=== PATIENT | female | born 1945 | race Caucasian/White ===

== ENCOUNTER 2017-02-10 12:06 | Emergency (ER) | payer BC ==
[2017-02-10 12:19] VITALS: BP 175/88
[2017-02-10] MEDS ORDERED: CLINDAMYCIN HCL 150 MG CAPSULE PO ONE (12:28)
[2017-02-10] MEDS ORDERED: DIPHTH,PERTUSS(ACELL),TET VAC 0.5 ML VIAL IM ONE ×2 (12:37→12:44)
--- OUTSIDE RECORDS SUMMARY | 2017-02-10 12:40 | XMS REPORT | Continuity of Care Document ---
:1945 Author Organization [facility] ([facility]) [place] [address] Phone [phone] Care Team Providers Name Role Phone Elsy Negrete Primary Care Provider [phone] Source Comments This disclosure is being made pursuant to the Care Everywhere program, applicable federal and state laws, and may not contain all informaitonavailable regarding this patient.[facility] ([facility]) Active Allergies and Adverse Reactions Allergen Noted Date Severity Reactions Comments Morphine 01/17/2016 Nausea & Vomiting Current Medications Prescription Sig. Disp. Refills Start Date End Date Status HYDROCODONE/ACETAMIN Active OPHEN (VICODIN PO) aspirin 81 mg EC Take 81 mg by Active tablet mouth daily. nitroglycerin Place 1 25 tablet 11 01/18/2016 Active (NITROSTAT) 0.4 mg tablet (0.4 SL tablet mg total) under the tongue every 5 minutes as needed. Maximum of 3 tablets in 15 minutes. OMEPRAZOLE (PRILOSEC Active PO) rosuvastatin 40 mg Take 1 tablet 90 tablet 3 01/29/2017 Active tablet (40 mg total) by mouth every evening. metoPROLol succinate Take 0.5 45 tablet 3 01/29/2017 Active 25 mg XL tablet tablets (12.5 mg total) by mouth daily. metoPROLol succinate Take 0.5 90 tablet 3 01/18/2016 01/29/2017 Discontinued 25 mg XL tablet tablets (12.5 mg total) by mouth daily. rosuvastatin Take 1 tablet 90 tablet 3 01/18/2016 01/29/2017 Discontinued (CRESTOR) 40 mg (40 mg total) tablet by mouth every evening. Active Problems Problem Noted Date Coronary artery disease Overview: [id number], Stent mid RCA-2006, Inferior CA-2006 Dyslipidemia Most Recent Encounters Date Type Specialty Providers Description 01/29/2017 Office Visit Heart and Vascular Carrol Yanez, JOSÉ MIGUEL Dx: Coronary artery disease involving [place] coronary artery of [place] heart without angina pectoris (Primary Dx) Social History Tobacco Use Types Packs/Day Years Used Date Current Some Day Smoker Cigarettes Smokeless Tobacco: Never Used Tobacco Cessation:Ready to Quit: No; Counseling Given: Yes Comments: Last Filed Vital Signs Vital Sign Reading Time Taken Blood Pressure 130/90 01/29/2017 10:31 AM CDT Pulse 60 01/29/2017 10:31 AM CDT Temperature - - Respiratory Rate - - Height 1.524 m (5') 01/29/2017 10:31 AM CDT Weight 58.06 kg (128 lb) 01/29/2017 10:31 AM CDT Body Mass Index 25 01/29/2017 10:31 AM CDT Oxygen Saturation - - Plan of Care Date Type Specialty Providers Description 02/11/2018 Appointment Heart and Vascular Carrol Yanez ARNP Chief Comp: Patient [address] [place] [address] Visit [phone] (Fax) Health Maintenance Due Date Last Done Comments HCV Screening 1945 Hepatitis B Vaccine (1 of 3 - Primary Series) 1945 Tdap Vaccine 1957 Lipid Disorder Screening 1964 Td Vaccine 1964 Mammogram 1986 Colonoscopy 12/03/1996 Zoster Vaccine 2006 Osteoporosis Screening (DXA Bone Density) 2011 Pneumococcal Vaccine (1 of 2 - PCV13) 2011 Influenza Vaccine: Seasonal (Season Ended) 2017 Results from Last 3 Months Not on file
[2017-02-10] MEDS ORDERED: CLINDAMYCIN HCL 150 MG CAPSULE ONE (12:44)
--- NOTE | 2017-02-10 12:49 | ERNOTE ---
Integumentary HPI - Narrative Date of Service: 02/10/17 - General Presenting Symptoms: insect bite Time Seen by Provider: 02/10/17 12:20 Source: patient Exam Limitations: no limitations - Immun/Allergies/Home Medications Allergies/Adverse Reactions: Allergies Allergy/AdvReac Type Severity Reaction Status Date / Time morphine AdvReac Verified 11/13/14 01:39 Home Medications: HOME MEDICATIONS Metoprolol Tartrate [Lopressor] 12.5 mg PO DAILY 11/13/14 [Last Taken Unknown] Rosuvastatin Calcium [Crestor] 40 mg PO DAILY 11/13/14 [Last Taken Unknown] Clindamycin HCl [Cleocin HCl] 300 mg PO QID #40 capsule 02/10/17 [Last Taken Unknown] - History of Present Illness Narrative: Patient presents with complaints of infected tick bite. She relates she had a tick bite right scalp 3 fays ago, tick removed 2 days ago. They inspected the tick and it was all removed. Since the tick was removed she has had yellow crusting, redness at the site and now the posterior/lateral neck hurts. No fever, no vomiting, no other associated Sx. She has moderate pain in the right posterior lateral upper neck with tender lymph node noted here. No other Sx. Location: Reports: scalp Quality: Reports: painful Severity: moderate Exposure: Reports: tick bite/ant Modifying Factors - (Improves): Reports: nothing Modifying Factors - (Worsens): Reports: nothing Associated Symptoms: Denies: hives, petechiae, fever, sore throat Prior Treatment: Denies: recently seen Review of Systems - Review of Systems Constitutional: Present: See HPI. Absent: fever EYE: Present: no symptoms reported ENT: Present: no symptoms reported Respiratory: Present: no symptoms reported Cardiology: Present: no symptoms reported Gastrointestinal/Abdominal: Present: no symptoms reported Neurological: Present: no symptoms reported - Patient's Past Medical History Patient History - Cardiac/Respiratory: Hypertension, Myocardial Infarction Patient History - Surgical Procedures: Hysterectomy - Social History Living Situations: home Psych History: No pertinent hx Smoking Status: Current every day smoker Physical Exam - Physical Exam General Appearance: Present: wd/wn, alert, no apparent distress Eye Exam: Normal inspection: bilateral Ears, Nose, Throat: Present: normal ENT inspection Neck: Present: other - Right posterior cervical chain lymphnodes tender c/w the infection on her scalp. No nec fasc. No abscess. No suggestion of anterior extension or tenderenss. Respiratory: Present: no respiratory distress, normal breath sounds Cardiovascular/Chest: Present: regular rate, rhythm Gastrointestinal/Abdominal: Present: nontender Extremity Exam: Present: normal inspection Neurological Exam: Present: alert, normal mood/affect, no motor/sensory deficits Skin Exam: Present: other - Right posterior scalp there is redness and some crusting at area of bite. No abscess and no areas to drain. ED Progress - Vital Signs Patient's Vital Signs:: I have reviewed the patient's vital signs. Vital Signs: Vital Signs 02/10/17 12:10 Temperature 37.4 C Pulse Rate 78 Respiratory 14 Rate Blood Pressure 175/88 O2 Sat by Pulse 98 Oximetry - Progress/Reassessment Chief Complaint: Insect Bite Progress Note-Subjective: 02/10/17 12:43 Infected tick bite. Nothing to suggest sepsis, toxicity, abscess, rash of lyme disease or other acute liofe threat. dT updated, wound culture and clindamycin. I stressed need to see PCP 2 days for a re-check. I discussed warning signs and reasons to return as well as the need for close f/u. Departure Clinical Impression: Infected tick bite - Departure Disposition: Home self-care Condition: Stable Instructions: Cellulitis, Adult, [id number] Additional Instructions: Antibiotics as directed. See your doctor in 2 days for a re-check. Return here for fever, increased pain or redness, swelling or if your condition worsens or changes in any way. Referrals: Elsy Negrete MD [Primary Care Provider] - Prescriptions: Clindamycin HCl [Cleocin HCl] 300 mg PO QID #40 capsule
== END 2017-02-10 12:54 | disposition home or self-care (01) ==
LOC: ER 12:06
DX: S00.06XA Insect bite (nonvenomous) of scalp, initial encounter (principal); L03.811 Cellulitis of head [any part, except face]; Z23 Encounter for immunization